=== PATIENT | male | born 1940 | race Caucasian/White ===

== ENCOUNTER → 2021-01-23 | Outpatient (CLI) | payer OTHER ==
[~2021-01-23] MED LIST: ASPIRIN EC81 MG PO; ELIQUIS 5 MG TAB5 MG PO; GLUCOPHAGE1000 MG PO; IMODIUM CAP 2 MG2 MG PO; LANTUS SOL100 UNIT/1 INJ; LANTUS SOL100 UNIT/1 SC; LASIX 40 MG TAB40 MG PO; LIPITOR40 MG PO; LISINOPRIL20 MG PO; LOPRESSOR 25 MG25 MG PO; PRAVASTATIN SOD40 MG PO; SYNTHROID 50 M50 MCG PO; TOPROL XL50 MG PO; TYLENOL325 MG PO
== END ==
LOC: HEART 5 12-20 11:00 → EXRD 01-09 13:30 → HEART 5 01-16 15:00 → EXRD 01-16 15:30 → HEART 5 10:00
DX: I65.23 Occlusion and stenosis of bilateral carotid arteries (principal); I35.0 Nonrheumatic aortic (valve) stenosis
CPT/HCPCS: 93306; 93880